=== PATIENT | female | born 1960 | race Hispanic/Latino ===

== ENCOUNTER 2016-08-15 07:59 | Day surgery (SDC) | payer BC ==
[~2016-08-15] VITALS: Ht 139.7 cm; Wt 79.4 kg
[~2016-08-15 07:59] MED LIST: ADVAIR DISK1 IN; ALDACTONE25 MG PO; ALLEGRA180 MG PO; CARVEDILOL3.125 MG PO; CENTRU3 PO; FLONASE AL50 MCG/ACT; JANUMET1 TA1 PO; OMEPRAZOLE20 M2 PO; VITAMIN B-121000 MCG PO; ZYRTEC10 M5 PO
[2016-08-15 10:33] VITALS: BP 106/66
== END 2016-08-15 10:48 | disposition home or self-care (01) | DRG 392 ==
LOC: ENDO 07:59 → ORM 11:00 → ENDO 13:05 → ORM 13:50
PROVIDERS: ATTEND Internal Medicine Gastroenterology
PROC: 0DB48ZX Excision of Esophagogastric Junction, Via Natural or Artificial Opening Endoscopic, Diagnostic (ICD-10-PCS; principal; 2016-08-15)
PROC: 0DBE8ZX Excision of Large Intestine, Via Natural or Artificial Opening Endoscopic, Diagnostic (ICD-10-PCS; 2016-08-15)
DX: R10.11 Right upper quadrant pain (principal); K74.60 Unspecified cirrhosis of liver; K62.5 Hemorrhage of anus and rectum; R10.13 Epigastric pain; K22.70 Barrett's esophagus without dysplasia; R63.4 Abnormal weight loss; K21.9 Gastro-esophageal reflux disease without esophagitis; K29.70 Gastritis, unspecified, without bleeding; K44.9 Diaphragmatic hernia without obstruction or gangrene; K64.4 Residual hemorrhoidal skin tags; K64.8 Other hemorrhoids; E11.9 Type 2 diabetes mellitus without complications; K75.81 Nonalcoholic steatohepatitis (NASH); Z86.010 Personal history of colon polyps

== ENCOUNTER 2017-04-11 22:53 | Observation (INO) | payer BC ==
[~2017-04-11] VITALS: Ht 139.7 cm; Wt 73.0 kg
[2017-04-11 23:47] LABS: HEMATOCRIT 40.4 % (37.0-47.0); HEMOGLOBIN 12.8 g/dl (12.0-16.0); IMMATURE GRANULOCYTES 0.4 % (0.0-1.0); MEAN CELL VOLUME 94.6 fL CALC (80.0-100.0); MEAN CORPUSCULAR HGB CONC 31.7 g/L CALC (32.0-36.0); NEUT# 7.45 thou/uL (2.00-7.15); RED BLOOD COUNT 4.27 mill/uL (4.20-5.60); RED CELL DISTRI WIDTH 16.6 % (11.5-15.5)
[2017-04-12 00:08] LABS: ALBUMIN 4.7 g/dL (3.2-5.0); ALKALINE PHOSPHATASE 108 u/l (38-126); ANION GAP 16 (6-22 (CALC)); BILIRUBIN, TOTAL 0.6 mg/dL (0.0-1.4); BUN 18 mg/dL (7-17); BUN/CREATININE RATIO 23 (12-20 (CALC)); CALCIUM 10.1 mg/dL (8.4-10.2); CARBON DIOXIDE 29 mmol/l (22-30); CHLORIDE 102 mmol/l (95-108); CREATININE 0.8 mg/dL (0.5-1.0); GFR > 60 ML/MIN (>=60 (CALC)); GFR FOR AFR.AMER. > 60 ML/MIN (>=60 (CALC)); GLUCOSE 123 mg/dL (65-105); LIPASE 144 u/l (23-300); POTASSIUM 3.8 mmol/l (3.5-5.1); SGOT/AST 29 u/l (14-36); SGPT/ALT 26 u/l (9-52); SODIUM 143 mmol/l (137-146); TOTAL PROTEIN 8.6 g/dL (6.3-8.2)
[2017-04-12] MEDS ORDERED: ASPIRIN 81 LOW81 MG PO (00:15)
[2017-04-12] MEDS ORDERED: FUROSEMIDE40 MG PO (00:15)
[2017-04-12 00:16] LABS: MYOGLOBIN 37 ng/mL (0 - 62)
[2017-04-12] MEDS ORDERED: SIMVASTATIN40 MG PO (00:16)
[2017-04-12 01:35] VITALS: BP 82/55
[2017-04-12 03:35] VITALS: BP 80/51
[2017-04-12 07:46] VITALS: BP 90/58
[2017-04-12 09:39] VITALS: BP 85/56
== END 2017-04-12 11:25 | disposition home or self-care (01) | DRG 313 ==
LOC: ED 22:53 → ED-I 04-12 00:38 → ED 04-12 00:53 → MS2 04-12 00:54
PROVIDERS: Emergency Medicine; ADMIT Internal Medicine; ATTEND Internal Medicine
PROC: 3E0234Z Introduction of Serum, Toxoid and Vaccine into Muscle, Percutaneous Approach (ICD-10-PCS; principal; 2017-04-12)
DX: R07.9 Chest pain, unspecified (principal); I95.9 Hypotension, unspecified; I25.10 Atherosclerotic heart disease of native coronary artery without angina pectoris; I50.22 Chronic systolic (congestive) heart failure; K74.60 Unspecified cirrhosis of liver; E11.9 Type 2 diabetes mellitus without complications; K21.9 Gastro-esophageal reflux disease without esophagitis; G47.30 Sleep apnea, unspecified; K22.70 Barrett's esophagus without dysplasia; K44.9 Diaphragmatic hernia without obstruction or gangrene; I25.5 Ischemic cardiomyopathy; M19.90 Unspecified osteoarthritis, unspecified site; Z23 Encounter for immunization
CPT/HCPCS: G0378

== ENCOUNTER 2017-09-11 15:10 | Inpatient (IN) | payer BC ==
[2017-09-11] VITALS (21 sets, daily range): BP systolic 74–122; BP diastolic 41–63
[~2017-09-11] VITALS: Ht 139.7 cm; Wt 70.3 kg
[~2017-09-11 15:10] MED LIST changes: +ASPIRIN 81 LOW81 MG PO; +FUROSEMIDE40 MG PO; +SIMVASTATIN40 MG PO
[2017-09-11 16:21] LABS: HEMATOCRIT 36.4 % (37.0-47.0); HEMOGLOBIN 11.4 g/dl (12.0-16.0); IMMATURE GRANULOCYTES 0.3 % (0.0-1.0); MEAN CELL VOLUME 91.9 fL CALC (80.0-100.0); MEAN CORPUSCULAR HGB 28.8 pG CALC (26.0-32.0); MEAN CORPUSCULAR HGB CONC 31.3 g/L CALC (32.0-36.0); NEUT# 7.37 thou/uL (2.00-7.15); RED BLOOD COUNT 3.96 mill/uL (4.20-5.60); RED CELL DISTRI WIDTH 17.2 % (11.5-15.5)
[2017-09-11 16:39] LABS: ALBUMIN 4.4 g/dL (3.2-5.0); ALKALINE PHOSPHATASE 97 u/l (38-126); ANION GAP 19 (6-22 (CALC)); BILIRUBIN, TOTAL 0.8 mg/dL (0.0-1.4); BUN 20 mg/dL (7-17); BUN/CREATININE RATIO 21 (12-20 (CALC)); CARBON DIOXIDE 28 mmol/l (22-30); CHLORIDE 100 mmol/l (95-108); CREATININE 0.9 mg/dL (0.5-1.0); GFR > 60 ML/MIN (>=60 (CALC)); GFR FOR AFR.AMER. > 60 ML/MIN (>=60 (CALC)); POTASSIUM 4.2 mmol/l (3.5-5.1); SGOT/AST 27 u/l (14-36); SGPT/ALT 29 u/l (9-52); SODIUM 142 mmol/l (137-146); TOTAL PROTEIN 8.3 g/dL (6.3-8.2)
[2017-09-11 17:10] LABS: TSH, 3RD GENERATION 1.59 uIU/mL (0.47 - 4.68)
[2017-09-12] VITALS (30 sets, daily range): BP systolic 72–109; BP diastolic 36–59
[2017-09-12 05:09] LABS: ANION GAP 17 (6-22 (CALC)); BUN 15 mg/dL (7-17); BUN/CREATININE RATIO 21 (12-20 (CALC)); CARBON DIOXIDE 31 mmol/l (22-30); CHLORIDE 97 mmol/l (95-108); CREATININE 0.7 mg/dL (0.5-1.0); GFR > 60 ML/MIN (>=60 (CALC)); GFR FOR AFR.AMER. > 60 ML/MIN (>=60 (CALC)); POTASSIUM 4.3 mmol/l (3.5-5.1); SODIUM 141 mmol/l (137-146)
[2017-09-13] VITALS (40 sets, daily range): BP systolic 71–127; BP diastolic 40–77
[2017-09-13 05:51] LABS: ANION GAP 17 (6-22 (CALC)); BUN 12 mg/dL (7-17); BUN/CREATININE RATIO 19 (12-20 (CALC)); CARBON DIOXIDE 30 mmol/l (22-30); CHLORIDE 98 mmol/l (95-108); CREATININE 0.6 mg/dL (0.5-1.0); GFR > 60 ML/MIN (>=60 (CALC)); GFR FOR AFR.AMER. > 60 ML/MIN (>=60 (CALC)); SODIUM 141 mmol/l (137-146)
[2017-09-13 06:07] LABS: HEMATOCRIT 37.1 % (37.0-47.0); HEMOGLOBIN 11.7 g/dl (12.0-16.0); IMMATURE GRANULOCYTES 0.3 % (0.0-1.0); MEAN CELL VOLUME 91.4 fL CALC (80.0-100.0); MEAN CORPUSCULAR HGB 28.8 pG CALC (26.0-32.0); MEAN CORPUSCULAR HGB CONC 31.5 g/L CALC (32.0-36.0); NEUT# 6.41 thou/uL (2.00-7.15); RED BLOOD COUNT 4.06 mill/uL (4.20-5.60); RED CELL DISTRI WIDTH 16.7 % (11.5-15.5)
[2017-09-14] VITALS (26 sets, daily range): BP systolic 84–118; BP diastolic 44–67
[2017-09-15] VITALS (7 sets, daily range): BP systolic 85–98; BP diastolic 46–70
[2017-09-15 05:19] LABS: HEMATOCRIT 38.1 % (37.0-47.0); IMMATURE GRANULOCYTES 0.4 % (0.0-1.0); MEAN CELL VOLUME 90.9 fL CALC (80.0-100.0); MEAN CORPUSCULAR HGB 28.6 pG CALC (26.0-32.0); MEAN CORPUSCULAR HGB CONC 31.5 g/L CALC (32.0-36.0); NEUT# 5.47 thou/uL (2.00-7.15); RED BLOOD COUNT 4.19 mill/uL (4.20-5.60); RED CELL DISTRI WIDTH 16.6 % (11.5-15.5)
[2017-09-15 05:32] LABS: ANION GAP 17 (6-22 (CALC)); BUN 17 mg/dL (7-17); BUN/CREATININE RATIO 26 (12-20 (CALC)); CARBON DIOXIDE 28 mmol/l (22-30); CHLORIDE 98 mmol/l (95-108); CREATININE 0.7 mg/dL (0.5-1.0); GFR > 60 ML/MIN (>=60 (CALC)); GFR FOR AFR.AMER. > 60 ML/MIN (>=60 (CALC)); POTASSIUM 4.3 mmol/l (3.5-5.1); SODIUM 138 mmol/l (137-146)
[2017-09-15] MEDS ORDERED: ALDACTONE25 MG PO (09:05)
== END 2017-09-15 10:57 | DRG 292 ==
LOC: ICU 15:10
PROVIDERS: Internal Medicine; ADMIT Internal Medicine; ATTEND Internal Medicine
DX: I50.23 Acute on chronic systolic (congestive) heart failure (principal); I42.0 Dilated cardiomyopathy; I95.9 Hypotension, unspecified; K76.0 Fatty (change of) liver, not elsewhere classified; E11.9 Type 2 diabetes mellitus without complications; M19.90 Unspecified osteoarthritis, unspecified site; E66.9 Obesity, unspecified; E78.5 Hyperlipidemia, unspecified; G47.33 Obstructive sleep apnea (adult) (pediatric); J45.909 Unspecified asthma, uncomplicated; K22.70 Barrett's esophagus without dysplasia; Z95.810 Presence of automatic (implantable) cardiac defibrillator; Z79.84 Long term (current) use of oral hypoglycemic drugs; Z68.36 Body mass index [BMI] 36.0-36.9, adult
CPT/HCPCS: J1250; J1650

== ENCOUNTER 2017-09-28 00:45 | Emergency (ER) | payer BC ==
[~2017-09-28] VITALS: Ht 139.7 cm; Wt 70.4 kg
[2017-09-28] MEDS ORDERED: CARVEDILOL3.125 MG PO (01:10)
[2017-09-28 01:16] LABS: HEMATOCRIT 37.4 % (37.0-47.0); HEMOGLOBIN 11.8 g/dl (12.0-16.0); IMMATURE GRANULOCYTES 0.4 % (0.0-1.0); MEAN CELL VOLUME 90.3 fL CALC (80.0-100.0); MEAN CORPUSCULAR HGB 28.5 pG CALC (26.0-32.0); MEAN CORPUSCULAR HGB CONC 31.6 g/L CALC (32.0-36.0); NEUT# 8.68 thou/uL (2.00-7.15); RED BLOOD COUNT 4.14 mill/uL (4.20-5.60); RED CELL DISTRI WIDTH 16.4 % (11.5-15.5)
[2017-09-28 01:31] LABS: ALBUMIN 4.4 g/dL (3.2-5.0); ALKALINE PHOSPHATASE 106 u/l (38-126); ANION GAP 17 (6-22 (CALC)); BILIRUBIN, TOTAL 0.6 mg/dL (0.0-1.4); BUN 25 mg/dL (7-17); BUN/CREATININE RATIO 28 (12-20 (CALC)); CARBON DIOXIDE 22 mmol/l (22-30); CHLORIDE 99 mmol/l (95-108); CREATININE 0.9 mg/dL (0.5-1.0); GFR > 60 ML/MIN (>=60 (CALC)); GFR FOR AFR.AMER. > 60 ML/MIN (>=60 (CALC)); POTASSIUM 4.7 mmol/l (3.5-5.1); SGOT/AST 38 u/l (14-36); SGPT/ALT 34 u/l (9-52); SODIUM 134 mmol/l (137-146)
[2017-09-28 01:43] LABS: MYOGLOBIN 26 ng/mL (0 - 62)
[2017-09-28 02:00] LABS: URINE BILIRUBIN - DIPSTICK NEGATIVE (NEGATIVE); URINE BLOOD DIPSTICK NEGATIVE (NEGATIVE); URINE COLOR YELLOW; URINE GLUCOSE - DIPSTICK NEGATIVE (NEGATIVE); URINE KETONE NEGATIVE (NEGATIVE); URINE LEUK ESTERASE NEGATIVE (NEGATIVE); URINE NITRITE - DIPSTICK NEGATIVE (Negative); URINE PROTEIN - DIPSTICK NEGATIVE (NEG-TRACE); URINE SPECIFIC GRAVITY <=1.005; URINE UROBILINOGEN - DIPSTICK 0.2 E.U./dL (0.2)
[2017-09-28 02:03] LABS: URINE CLARITY SL CLOUDY
[2017-09-28 02:55] VITALS: BP 117/69
== END 2017-09-28 02:55 | disposition short-term general hospital (02) | DRG 282 ==
LOC: ED 00:45
PROVIDERS: Family Medicine
DX: I21.4 Non-ST elevation (NSTEMI) myocardial infarction (principal); I50.9 Heart failure, unspecified; Z95.810 Presence of automatic (implantable) cardiac defibrillator; R06.02 Shortness of breath

== ENCOUNTER 2018-09-24 06:51 | Day surgery (SDC) | payer BC ==
[~2018-09-24] VITALS: Ht 139.7 cm; Wt 77.1 kg
[~2018-09-24 06:51] MED LIST changes: +ALL DAY10 MG PO; +CARVEDILOL6.25 MG PO; +ENTRESTO 24-261 TAB PO; +FAMOTIDINE20 M1 PO; +LASIX 80 MG TAB80 M1 PO; +SPIRONOLACTONE25 MG PO
[2018-09-24 09:02] VITALS: BP 80/42
== END 2018-09-24 09:08 | disposition home or self-care (01) | DRG 392 ==
LOC: ORM 06:51
PROVIDERS: ATTEND Internal Medicine Gastroenterology
PROC: 0DB48ZX Excision of Esophagogastric Junction, Via Natural or Artificial Opening Endoscopic, Diagnostic (ICD-10-PCS; principal; 2018-09-24)
PROC: 0DB78ZX Excision of Stomach, Pylorus, Via Natural or Artificial Opening Endoscopic, Diagnostic (ICD-10-PCS; 2018-09-24)
DX: K21.0 Gastro-esophageal reflux disease with esophagitis (principal); K29.00 Acute gastritis without bleeding; K29.50 Unspecified chronic gastritis without bleeding; K31.7 Polyp of stomach and duodenum; K44.9 Diaphragmatic hernia without obstruction or gangrene; K75.81 Nonalcoholic steatohepatitis (NASH); E11.9 Type 2 diabetes mellitus without complications

== ENCOUNTER 2019-03-25 06:41 | Day surgery (SDC) | payer BC ==
[~2019-03-25] VITALS: Ht 137.2 cm; Wt 77.1 kg
[~2019-03-25 06:41] MED LIST changes: +LASIX 40 MG TAB40 MG PO; +OMEPRAZOLE DR10 MG PO; +OMEPRAZOLE DR40 MG PO
[2019-03-25 08:43] VITALS: BP 102/63
== END 2019-03-25 09:04 | disposition home or self-care (01) | DRG 395 ==
LOC: ENDO 06:41 → ORM 14:15
PROVIDERS: ATTEND Internal Medicine Gastroenterology
PROC: 0DJD8ZZ Inspection of Lower Intestinal Tract, Via Natural or Artificial Opening Endoscopic (ICD-10-PCS; principal; 2019-03-25)
DX: K64.4 Residual hemorrhoidal skin tags (principal); D64.9 Anemia, unspecified; K59.00 Constipation, unspecified; E11.9 Type 2 diabetes mellitus without complications; Z86.010 Personal history of colon polyps

== ENCOUNTER 2021-07-29 13:42 | Emergency (ER) | payer BC ==
[2021-07-29] VITALS (8 sets, daily range): BP systolic 95–115; BP diastolic 40–64
[~2021-07-29] VITALS: Ht 139.7 cm; Wt 81.8 kg
[2021-07-29] MEDS ORDERED: ALLERGY RELF10 M3 PO (14:15)
[2021-07-29] MEDS ORDERED: SPIRONOLACTONE25 MG PO (14:16)
[2021-07-29 14:26] LABS: HEMATOCRIT 36.9 % (37.0-47.0); HEMOGLOBIN 11.3 g/dl (12.0-16.0); IMMATURE GRANULOCYTES 0.2 % (0.0-5.0); MEAN CELL VOLUME 93.2 fL CALC (80.0-100.0); MEAN CORPUSCULAR HGB 28.5 pG CALC (26.0-32.0); MEAN CORPUSCULAR HGB CONC 30.6 g/dL CAL (32.0-36.0); NEUT# 5.97 thou/uL (2.00-7.15); RED BLOOD COUNT 3.96 mill/uL (4.20-5.60); RED CELL DISTRI WIDTH 15.7 % (11.5-15.5)
[2021-07-29 14:44] LABS: ALBUMIN 4.4 g/dL (3.2-5.0); ALKALINE PHOSPHATASE 100 u/l (38-126); BILIRUBIN, TOTAL 0.4 mg/dL (0.0-1.4); BUN 27 mg/dL (8-23); BUN/CREATININE RATIO 27 (12-20 (CALC)); CHLORIDE 101 mmol/l (95-108); GFR 56 ML/MIN (>=60 (CALC)); GFR FOR AFR.AMER. > 60 ML/MIN (>=60 (CALC)); POTASSIUM 4.3 mmol/l (3.5-5.1); SGOT/AST 25 u/l (9-36); SODIUM 138 mmol/l (137-146); TOTAL PROTEIN 8.8 g/dL (6.3-8.2)
[2021-07-29 14:46] LABS: ANION GAP 12 (6-22 (CALC)); CARBON DIOXIDE 29 mmol/l (22-30)
[2021-07-29 14:56] LABS: MYOGLOBIN 30 ng/mL (0 - 62)
== END 2021-07-29 16:38 | disposition left against medical advice (07) | DRG 313 ==
LOC: ED 13:42
PROVIDERS: Emergency Medicine
DX: R07.9 Chest pain, unspecified (principal); I50.9 Heart failure, unspecified; I25.10 Atherosclerotic heart disease of native coronary artery without angina pectoris; I42.9 Cardiomyopathy, unspecified; E11.9 Type 2 diabetes mellitus without complications; K74.60 Unspecified cirrhosis of liver; G47.30 Sleep apnea, unspecified; Z91.19 Patient's noncompliance with other medical treatment and regimen; Z95.810 Presence of automatic (implantable) cardiac defibrillator

== ENCOUNTER 2024-01-09 17:18 | Emergency (ER) | payer BC ==
[~2024-01-09] VITALS: Ht 139.7 cm; Wt 57.0 kg
[2024-01-09] VITALS (24 sets, daily range): BP systolic 67–139; BP diastolic 36–88
[~2024-01-09 17:18] MED LIST changes: +ALLERGY RELF10 M3 PO; +DIGOX125 MCG PO; +FARXIGA10 MG PO; +LASIX40 MG PO; +LEVOCETIRIZINE D5 MG PO; +WEGOVY0.25 MG SC
[2024-01-09 17:54] LABS: BASO% 0.5 % (0-3); EOS% 3.4 % (0-8); HEMATOCRIT 34.1 % (37.0-47.0); HEMOGLOBIN 10.5 g/dl (12.0-16.0); IMMATURE GRANULOCYTES 0.1 % (0.0-5.0); LYMPH% 20.8 % (15-41); MEAN CELL VOLUME 92.9 fL CALC (80.0-100.0); MEAN CORPUSCULAR HGB 28.6 pG CALC (26.0-32.0); MEAN CORPUSCULAR HGB CONC 30.8 g/dL CAL (32.0-36.0); MONO% 6.4 % (2-13); NEUT# 6.84 thou/uL (2.00-7.15); NEUT% 68.8 % (42-76); RED BLOOD COUNT 3.67 mill/uL (4.20-5.60); RED CELL DISTRI WIDTH 16.3 % (11.5-15.5)
[2024-01-09 18:06] LABS: ALBUMIN 4.6 g/dL (3.2-5.0); BILIRUBIN, TOTAL 0.7 mg/dL (0.02-1.3); CREATININE 1.3 mg/dL (0.5-1.0); POTASSIUM 4.6 mmol/l (3.5-5.1)
[2024-01-09 18:10] LABS: TOTAL PROTEIN 8.6 g/dL (6.3-8.2)
[2024-01-09] MEDS ORDERED: BUMETANIDE 1 MG/4 ML VIAL IV ONE (19:15)
[2024-01-09] MEDS ORDERED: NITROGLYCERIN 2% OINT UD 1 GM/PAK TD ONE (19:15)
[2024-01-09] MEDS ORDERED: ONDANSETRON HCl 4 MG/2 ML SDV IV ONE (19:15)
[2024-01-09] MEDS ORDERED: LOPRESSOR25 M1 PO (19:38)
[2024-01-09 20:56] LABS: URINE BILIRUBIN - DIPSTICK Negative (NEGATIVE); URINE BLOOD DIPSTICK Negative (NEGATIVE); URINE GLUCOSE - DIPSTICK 250 mg/dL (NEGATIVE); URINE KETONE Negative (NEGATIVE); URINE LEUK ESTERASE Negative (NEGATIVE); URINE NITRITE - DIPSTICK Negative (Negative); URINE PROTEIN - DIPSTICK Negative (NEG-TRACE); URINE SPECIFIC GRAVITY <=1.005; URINE UROBILINOGEN - DIPSTICK 0.2 E.U./dL (0.2)
[2024-01-09 20:57] LABS: URINE COLOR Yellow
== END 2024-01-09 22:05 | disposition short-term general hospital (02) | DRG 313 ==
LOC: ED 17:18
PROVIDERS: Family Medicine
PROC: 5A09357 Assistance with Respiratory Ventilation, Less than 24 Consecutive Hours, Continuous Positive Airway Pressure (ICD-10-PCS; principal; 2024-01-09)
DX: R07.9 Chest pain, unspecified (principal); J96.90 Respiratory failure, unspecified, unspecified whether with hypoxia or hypercapnia; I11.0 Hypertensive heart disease with heart failure; I50.9 Heart failure, unspecified; E11.9 Type 2 diabetes mellitus without complications; E78.5 Hyperlipidemia, unspecified; K76.0 Fatty (change of) liver, not elsewhere classified; G47.30 Sleep apnea, unspecified; Z79.84 Long term (current) use of oral hypoglycemic drugs; Z95.810 Presence of automatic (implantable) cardiac defibrillator; Z20.822 Contact with and (suspected) exposure to COVID-19
CPT/HCPCS: Q9967

== ENCOUNTER 2024-06-06 09:49 | Emergency (ER) | payer BC ==
[2024-06-06] VITALS (60 sets, daily range): BP systolic 82–115; BP diastolic 34–59
[~2024-06-06] VITALS: Ht 139.7 cm; Wt 62.4 kg
[~2024-06-06 09:49] MED LIST changes: +ATELVIA35 MG PO; +IVABRADINE PO; +LANOXIN0.125 MG PO; +LOPRESSOR25 M1 PO; +VITAMIN D PO; +[UNRECOGNIZED DRUG - OTHER] PO; +[UNRECOGNIZED DRUG - OTHER] PO
--- NOTE | 2024-06-06 09:50 | NUR ---
PT TO ER ROOM 3 WITH STEADY GAIT
[2024-06-06 10:20] LABS: BASO% 0.5 % (0-3); EOS% 2.7 % (0-8); HEMATOCRIT 35.2 % (37.0-47.0); HEMOGLOBIN 10.8 g/dl (12.0-16.0); IMMATURE GRANULOCYTES 0.3 % (0.0-5.0); LYMPH% 20.1 % (15-41); MEAN CELL VOLUME 100.3 fL CALC (80.0-100.0); MEAN CORPUSCULAR HGB 30.8 pG CALC (26.0-32.0); MEAN CORPUSCULAR HGB CONC 30.7 g/dL CAL (32.0-36.0); MONO% 5.7 % (2-13); NEUT# 6.49 thou/uL (2.00-7.15); NEUT% 70.7 % (42-76); RED BLOOD COUNT 3.51 mill/uL (4.20-5.60); RED CELL DISTRI WIDTH 15.4 % (11.5-15.5)
[2024-06-06 10:55] LABS: ALBUMIN 4.5 g/dL (3.2-5.0); BILIRUBIN, TOTAL 0.9 mg/dL (0.02-1.3); CREATININE 1.3 mg/dL (0.5-1.0); POTASSIUM 4.1 mmol/l (3.5-5.1); TOTAL PROTEIN 8.2 g/dL (6.3-8.2)
--- NOTE | 2024-06-06 11:30 | NUR ---
PT TO R BATHROOM WITH STEADY GAIT. NO DISTRESS NOTED.
[2024-06-06] MEDS ORDERED: FUROSEMIDE 40 MG/4 ML SDV IV ONE (12:00)
[2024-06-06] MEDS ORDERED: MIDODRINE5 MG PO (12:12)
[2024-06-06] MEDS ORDERED: SILDENAFIL20 MG (12:14)
[2024-06-06] MEDS ORDERED: OZEMPIC2 MG SC (12:15)
[2024-06-06] MEDS ORDERED: ACETAMINOPHEN 325 MG/TAB PO PRN (12:15)
[2024-06-06] MEDS ORDERED: MAGNESIUM HYDROXIDE 30 ML UDC PO PRN (12:15)
--- NOTE | 2024-06-06 12:31 | NUR ---
PT GIVEN LASIX PER EMAR. PT REQUEST BEDSIDE COMMODE. COMMODE AND WIPES PROVIDED TO PT. CALL LIGHT IN REAC. PT DENIES ANY NEEDS.
--- NOTE | 2024-06-06 13:45 | NUR ---
PTS COMMODE EMPTIED. 500ML URINE OUTPUT COLLECTED.
[2024-06-06] MEDS ORDERED: FUROSEMIDE 40 MG/4 ML SDV IV SCH (14:00)
[2024-06-06] MEDS ORDERED: Heparin SODIUM (Porcine) 5,000 UNITS/ML SDV SC SCH (14:00)
--- NOTE | 2024-06-06 14:30 | NUR ---
PTS LUNCH TRAY PROVIDED. PT DENIES ANY CURRENT NEEDS.
--- NOTE | 2024-06-06 14:37 | NUR ---
BEDSIDE REPORTT GIVEN TO KASSI POWER
--- NOTE | 2024-06-06 16:25 | NUR ---
PT TAKEN TO ICU. VIA BED.
--- NOTE | 2024-06-06 16:26 | NUR ---
500ML URINE EMPTIED FROM COMMODE.
--- NOTE | 2024-06-06 16:33 | NUR ---
PATIENT ADMITTED FORM ED TO ICU3. PATIENT A&OX4 AND ABLE TO MAKE NEEDS KNOWN. PATIENT ORIENTED TO ROOM, CALL LIGHT, AND SURROUNDINGS, PATIENT VERBALIZED UNDERSTANDING. ADMISSION AND ASSESSMENT COMPLETED WITH PATIENT. PATIENT DENIES ANY NEEDS AT THIS TIME. PATIENT BED AT LOWEST LEVEL, TOP 2 SIDERAILS UP, AND CALL LIGHT WITHIN REACH.
[2024-06-06] MEDS ORDERED: INSULIN LISPRO 100 UNITS/ML ML SC SCH (17:00)
[2024-06-06] MEDS ORDERED: MIDODRINE HCL 5 MG TAB PO SCH ×2 (17:30)
--- NOTE | 2024-06-06 19:00 | NUR ---
REPORT RECEIVED FROM JANNET GOLDMAN AND CARE OF PT ASSUMED AT THIS TIME
--- NOTE | 2024-06-06 21:00 | NUR ---
PT AMBULATED TO BR AND BACK TO BED W/ STEADY GAIT AND W/O DIFFICULTY. A&O X 4. NO DISTRESS NOTED
[2024-06-07] VITALS (59 sets, daily range): BP systolic 72–121; BP diastolic 34–75
--- NOTE | 2024-06-07 | NUR ---
PT SLEEPING. NO DISTRESS NOTED
[2024-06-07 04:53] LABS: ALBUMIN 3.8 g/dL (3.2-5.0); BILIRUBIN, TOTAL 0.7 mg/dL (0.02-1.3); CREATININE 1.6 mg/dL (0.5-1.0)
[2024-06-07 04:55] LABS: MAGNESIUM 1.9 mg/dL (1.6-2.3)
[2024-06-07 05:05] LABS: BASO% 0.5 % (0-3); EOS% 3.8 % (0-8); HEMATOCRIT 34.5 % (37.0-47.0); HEMOGLOBIN 10.8 g/dl (12.0-16.0); IMMATURE GRANULOCYTES 0.1 % (0.0-5.0); LYMPH% 22.5 % (15-41); MEAN CELL VOLUME 100.3 fL CALC (80.0-100.0); MEAN CORPUSCULAR HGB 31.4 pG CALC (26.0-32.0); MEAN CORPUSCULAR HGB CONC 31.3 g/dL CAL (32.0-36.0); MONO% 6.6 % (2-13); NEUT# 5.41 thou/uL (2.00-7.15); NEUT% 66.5 % (42-76); RED BLOOD COUNT 3.44 mill/uL (4.20-5.60); RED CELL DISTRI WIDTH 15.1 % (11.5-15.5)
--- NOTE | 2024-06-07 06:00 | NUR ---
PT SLEEPING, EASILY AROUSABLE. MEDICATED PER MD ORDERS. AMBULATED TO BR AND BACK TO BED. NO DISTRESS NOTED
--- NOTE | 2024-06-07 08:00 | NUR ---
PT IS SITTING IN CHAIR BY THE BED, EATING BREAKFAST. CALL LIGHT IN REACH.
[2024-06-07] MEDS ORDERED: SPIRONOLACTONE 25 MG/TAB PO SCH (09:00)
[2024-06-07] MEDS ORDERED: DIGOXIN 0.25 MG/TAB PO SCH (09:00)
[2024-06-07] MEDS ORDERED: PANTOPRAZOLE SODIUM Sesquihydr 40 MG/TAB PO SCH (09:00)
[2024-06-07] MEDS ORDERED: DIGOXIN 0.125 MG/TAB PO SCH (09:00)
[2024-06-07] MEDS ORDERED: ASPIRIN 81 MG/TAB PO SCH (09:00)
--- NOTE | 2024-06-07 12:01 | NUR ---
PT IS SITTIN KRIS CHAIR BY THE BED. CALL LIGHT IN REACH AND FRIEND AT THE BEDSIDE
--- NOTE | 2024-06-07 12:15 | NUR ---
BLADDER SCAN SHOWS 417. DR. ZHU ON THE UNIT, NOTIFIED AT TIME OF SCAN.
--- NOTE | 2024-06-07 16:03 | NUR ---
Discharge instructions given. Patient verbalizes understanding of same. Discharged in stable condition via Wheelchair to Home with staff. All belongings sent with pt. IV and Telemetry removed.
== END 2024-06-07 15:50 | disposition home or self-care (01) | DRG 291 ==
LOC: ED 09:49 → ED-I 11:49 → ED 12:05 → ICU 12:06
PROVIDERS: Family Medicine; Nurse Practitioner Family; ADMIT Internal Medicine; ATTEND Internal Medicine
DX: I11.0 Hypertensive heart disease with heart failure (principal); I50.23 Acute on chronic systolic (congestive) heart failure; I25.10 Atherosclerotic heart disease of native coronary artery without angina pectoris; I95.9 Hypotension, unspecified; I42.0 Dilated cardiomyopathy; I34.0 Nonrheumatic mitral (valve) insufficiency; K76.0 Fatty (change of) liver, not elsewhere classified; K22.70 Barrett's esophagus without dysplasia; K44.9 Diaphragmatic hernia without obstruction or gangrene; G47.33 Obstructive sleep apnea (adult) (pediatric); E66.9 Obesity, unspecified; Z95.810 Presence of automatic (implantable) cardiac defibrillator; Z79.899 Other long term (current) drug therapy
CPT/HCPCS: J1644; J1815; J1940

== ENCOUNTER 2024-07-13 08:01 | Inpatient (IN) | payer BC ==
[~2024-07-13] VITALS: Ht 139.7 cm; Wt 62.0 kg
[2024-07-13] VITALS (29 sets, daily range): BP systolic 64–107; BP diastolic 39–67
[~2024-07-13 08:01] MED LIST changes: +MIDODRINE5 MG PO; +OZEMPIC2 MG SC; +SILDENAFIL20 MG
--- NOTE | 2024-07-13 08:10 | NUR ---
TO ROOM VIA WHEELCHAIR
[2024-07-13] MEDS ORDERED: FUROSEMIDE 40 MG/4 ML SDV IV ONE (08:30)
[2024-07-13 09:09] LABS: BASO% 0.3 % (0-3); HEMATOCRIT 30.7 % (37.0-47.0); HEMOGLOBIN 9.7 g/dl (12.0-16.0); IMMATURE GRANULOCYTES 0.2 % (0.0-5.0); LYMPH% 17.1 % (15-41); MEAN CELL VOLUME 96.8 fL CALC (80.0-100.0); MEAN CORPUSCULAR HGB 30.6 pG CALC (26.0-32.0); MEAN CORPUSCULAR HGB CONC 31.6 g/dL CAL (32.0-36.0); MONO% 3.8 % (2-13); NEUT# 7.22 thou/uL (2.00-7.15); NEUT% 76.6 % (42-76); RED BLOOD COUNT 3.17 mill/uL (4.20-5.60); RED CELL DISTRI WIDTH 15.4 % (11.5-15.5)
[2024-07-13 09:30] LABS: ALBUMIN 4.5 g/dL (3.2-5.0); BILIRUBIN, TOTAL 0.8 mg/dL (0.02-1.3); CREATININE 1.4 mg/dL (0.5-1.0); POTASSIUM 3.7 mmol/l (3.5-5.1); TOTAL PROTEIN 7.8 g/dL (6.3-8.2)
--- NOTE | 2024-07-13 10:03 | NUR ---
PT UP TO BED SIDE COMMOD,200CC URINE OUT PUT
--- NOTE | 2024-07-13 10:19 | NUR ---
PT ASSISTED TO THE BEDSIDE COMMAND, 400CC OUTPUT
--- NOTE | 2024-07-13 11:40 | NUR ---
Reassessment of patient completed. No distress noted. WARM BLANKET OFFERED AND REFUSED. VISITORS AT BEDSIDE.
--- NOTE | 2024-07-13 12:00 | NUR ---
PT UP TO BEDSIDE COMM0D,URINE OUT PUT 300
--- NOTE | 2024-07-13 12:55 | NUR ---
PT RESTING COMFORTABLY IN BED WITH FAMILY AT BEDSIDE
[2024-07-13] MEDS ORDERED: ACETAMINOPHEN 325 MG/TAB PO PRN (13:05)
[2024-07-13] MEDS ORDERED: MAGNESIUM HYDROXIDE 30 ML UDC PO PRN (13:05)
--- NOTE | 2024-07-13 13:10 | NUR ---
PT UP TO BED SIDE COMMOD, URINE OUTPUT 200
--- NOTE | 2024-07-13 13:26 | NUR ---
REPORT CALLED TO CIRA UGARTE
--- NOTE | 2024-07-13 13:35 | NUR ---
PT ARRIVED TO THE UNIT FROM ED VIA WC WITH 2L O2 NC IN PLACE. NURSE PATRICIA WAS A STANDBY ASSIST WHILE PT AMBULATED TO SCALE AND BED WITH A STEADY GATE. O2 ON 2L IN ROOM. RESP EVEN AND UNLABORED. LUNGS CLEAR IN ALL NGUYỄN. PACED SR, TELLE IN PLACE. PT STATES HAVING ABD FULLNESS, NOT TENDER ON PALPATION, ACTIVE BOWEL SOUNDS IN ALL 4. 18G IN RAC. STRONG RADIAL PULSES AND WEAK PEDAL PULSES. PT ORIENTED TO ROOM AND CALL SOL. SAFTEY PRECAUTIONS IN PLACE. BED IN THE LOWEST POSITION AND CALL SOL WITHIN REACH.
--- NOTE | 2024-07-13 13:41 | NUR ---
TO ROOM 274 VIA WHEELCHAIR, TELE MONITOR #[id number], ALL PERSONAL BELONGINGS WITH PT
[2024-07-13] MEDS ORDERED: Heparin SODIUM (Porcine) 5,000 UNITS/ML SDV SC SCH (14:00)
[2024-07-13] MEDS ORDERED: MIDODRINE HCL 5 MG TAB PO SCH ×2 (15:00→21:00)
--- NOTE | 2024-07-13 15:54 | NUR ---
PT IS SITTING IN HIGH FOWLEWRS POSITION WITH VISITORS AT BEDSIDE. NO S/S OF DISTRESS AT THIS TIME. TELLE IN PLACE. O2 NC IN PLACE. SAFTEY PRECAUTIONS IN PLACE. BED IN THE LOWEST POSITION AND CALL LIGHT WITHIN REACH.
[2024-07-13] MEDS ORDERED: FUROSEMIDE 40 MG/4 ML SDV IV SCH (16:00)
--- NOTE | 2024-07-13 16:49 | NUR ---
PT BASELINE IS HX OF HYPOTENTION. PTS BP DROPPED DOWN TO 80S OVER 40S. NOTIFIED MARIELA FISH DRIER, MARIELA CHANGED NEXT ORDERED DOSE OF MIDOGRINE TO A HIGHER DOSE. WILL CONTINUE TO MONITOR BP CLOSELY.
[2024-07-13] MEDS ORDERED: INSULIN LISPRO 100 UNITS/ML ML SC SCH (17:00)
--- NOTE | 2024-07-13 19:30 | NUR ---
RECD REPORT FROM DAY SHIFT RN. NO DISTRESS NOTED. DENIES COMPLAINTS. EDUCATED PARACHUTE OFFICER LIGHT AND FALL PRECAUTIONS. DEMONSTRATED UNDERSTANDING
[2024-07-14] VITALS: BP 103/51; BP 107/57
--- NOTE | 2024-07-14 | NUR ---
PT OBSERVED SLEEPING WITHOUT DISTRESS, DENIES COMPLAINTS VSS WITH CALL LIGHT WITHIN REACH
[2024-07-14 04:00] VITALS: BP 101/68
[2024-07-14 05:20] LABS: BASO% 0.6 % (0-3); EOS% 2.8 % (0-8); HEMATOCRIT 30.3 % (37.0-47.0); HEMOGLOBIN 9.6 g/dl (12.0-16.0); IMMATURE GRANULOCYTES 0.2 % (0.0-5.0); LYMPH% 22.4 % (15-41); MEAN CELL VOLUME 95.6 fL CALC (80.0-100.0); MEAN CORPUSCULAR HGB 30.3 pG CALC (26.0-32.0); MEAN CORPUSCULAR HGB CONC 31.7 g/dL CAL (32.0-36.0); MONO% 4.8 % (2-13); NEUT# 5.88 thou/uL (2.00-7.15); NEUT% 69.2 % (42-76); RED BLOOD COUNT 3.17 mill/uL (4.20-5.60); RED CELL DISTRI WIDTH 15.4 % (11.5-15.5)
[2024-07-14 05:44] LABS: BILIRUBIN, TOTAL 1.1 mg/dL (0.02-1.3); CREATININE 1.2 mg/dL (0.5-1.0); POTASSIUM 3.8 mmol/l (3.5-5.1); TOTAL PROTEIN 7.1 g/dL (6.3-8.2)
[2024-07-14 05:48] LABS: MAGNESIUM 1.4 mg/dL (1.6-2.3)
--- NOTE | 2024-07-14 06:48 | NUR ---
PT REMAINS STABLE WITH NO SIGNS OF DISTRESS RESTING WELL WITH CALL LIGHT WITHIN REACH
--- NOTE | 2024-07-14 07:30 | NUR ---
PT SITTING ON THE SIDE OF THE BED VISITING WITH VISITOR AT BEDSIDE, PT IS A&O X3, PUPILS PERRL, RESP. EVEN AND UNLABORED, LUNG SOUNDS ARE CLEAR, ABD DISTENDED AND SOFT WITH ACTIVE BOWEL SOUNDS, 18 RAC IV SL, DRESSING CD&I. STRONG RADIAL PULSES, WEAK PEDAL PULSES, SAFETY MEASURES REINFORCED, CALL SOL WITHIN REACH
[2024-07-14 07:31] VITALS: BP 100/47
[2024-07-14] MEDS ORDERED: ASPIRIN 81 MG/TAB PO SCH (09:00)
[2024-07-14] MEDS ORDERED: PANTOPRAZOLE SODIUM Sesquihydr 40 MG/TAB PO SCH (09:00)
[2024-07-14] MEDS ORDERED: DIGOXIN 0.125 MG/TAB PO SCH (09:00)
[2024-07-14] MEDS ORDERED: SPIRONOLACTONE 25 MG/TAB PO SCH (12:00)
[2024-07-14] MEDS ORDERED: MAGNESIUM SULFATE HEPTAHYDRATE 100 ML IV SCH (13:00)
[2024-07-14 14:49] VITALS: BP 112/54
--- NOTE | 2024-07-14 16:00 | NUR ---
PT SITTING UP IN THE RECLINER TALKING TO VISITORS, NO S/S OF DISTRESS, CALL SOL WITHIN REACH
--- NOTE | 2024-07-14 19:00 | NUR ---
RECD REPORT FROM DAY SHIFT RN. PT IS STABLE AT THIS TIME WITH VISITORS BEDSIDE CALL LIGHT WITHIN REACH
[2024-07-14 20:00] VITALS: BP 115/72
[2024-07-14] MEDS ORDERED: IPRATROPIUM-Albuterol 0.5MG-2.5MG/3 ML NEB PRN (20:05)
[2024-07-14] MEDS ORDERED: IPRATROPIUM-Albuterol 0.5MG-2.5MG/3 ML IN PRN (20:25)
[2024-07-15] VITALS: BP 112/54
--- NOTE | 2024-07-15 | NUR ---
PT HAD INTERMITTENT EPISODE OF SELF INDUCED ANXIETY AND RESPONDED TO VISITORS SUGGESTIONS, BELIEVING THE MANIFESTING SYMPTOMS THAT WERE NOT EVIDENT. CALLED MARIELA, ORDERED NEB ADMINISTERED AND REMAINED STABLE WITH REDUCED ANXIETY. CALL LIGHT IN REACH
[2024-07-15 04:00] VITALS: BP 112/66
[2024-07-15 06:38] LABS: BASO% 0.2 % (0-3); EOS% 0.5 % (0-8); HEMATOCRIT 30.3 % (37.0-47.0); HEMOGLOBIN 9.6 g/dl (12.0-16.0); IMMATURE GRANULOCYTES 0.1 % (0.0-5.0); LYMPH% 14.9 % (15-41); MEAN CELL VOLUME 96.5 fL CALC (80.0-100.0); MEAN CORPUSCULAR HGB 30.6 pG CALC (26.0-32.0); MEAN CORPUSCULAR HGB CONC 31.7 g/dL CAL (32.0-36.0); MONO% 4.6 % (2-13); NEUT# 7.74 thou/uL (2.00-7.15); NEUT% 79.7 % (42-76); RED BLOOD COUNT 3.14 mill/uL (4.20-5.60); RED CELL DISTRI WIDTH 15.3 % (11.5-15.5)
--- NOTE | 2024-07-15 06:50 | NUR ---
PT REMAINED STABLE THTOUGHOUT SHIFT. NO COMPLAINTS OR SIGNS OF DISTRESS DENIES SOB OR PAIN RESTIN WELL WITH CALL LIGHT IN REACH
[2024-07-15 06:53] LABS: ALBUMIN 4.1 g/dL (3.2-5.0); BILIRUBIN, TOTAL 1.3 mg/dL (0.02-1.3); CREATININE 1.4 mg/dL (0.5-1.0); MAGNESIUM 2.7 mg/dL (1.6-2.3); POTASSIUM 3.8 mmol/l (3.5-5.1); TOTAL PROTEIN 7.2 g/dL (6.3-8.2)
[2024-07-15 07:29] VITALS: BP 105/62
--- NOTE | 2024-07-15 07:30 | NUR ---
PATIENT SITTING UP ON SIDE OF BED AWAKE ON CELLPHONE. FAMILY MEMBER AT BEDSIDE. BREATHING UNLABORED ON 2L NC. TELE INTACT. IV IN RAC SL;SITE CLEAN AND INTACT. PT DENIES ANY PAIN OR N/D/V AT THIS TIME. ASSESSMENT COMPLETED. PERSONAL ITEMS WELL CALL LIGHT NEAR. BED IN LOWEST POSITION. NO NEEDS AT THIS TIME. POC ONGOING.
[2024-07-15 10:52] VITALS: BP 101/59
--- NOTE | 2024-07-15 11:06 | NUR ---
Discharge instructions given. Patient verbalizes understanding of same. Discharged in stable condition via Wheelchair to Home with friend. All belongings sent with pt. Tele #[phone] removed and placed in bin at nursing station.
== END 2024-07-15 11:06 | disposition home or self-care (01) | DRG 292 ==
LOC: ED 08:01 → ED-I 10:00 → ED 10:47 → MS2 10:48
PROVIDERS: Family Medicine; Nurse Practitioner Family; ADMIT Internal Medicine; ATTEND Internal Medicine
DX: I50.23 Acute on chronic systolic (congestive) heart failure (principal); I42.0 Dilated cardiomyopathy; I25.5 Ischemic cardiomyopathy; E11.22 Type 2 diabetes mellitus with diabetic chronic kidney disease; N18.31 Chronic kidney disease, stage 3a; D63.1 Anemia in chronic kidney disease; I34.0 Nonrheumatic mitral (valve) insufficiency; J44.9 Chronic obstructive pulmonary disease, unspecified; E78.5 Hyperlipidemia, unspecified; K22.70 Barrett's esophagus without dysplasia; E83.42 Hypomagnesemia; E66.9 Obesity, unspecified; G47.30 Sleep apnea, unspecified; K76.0 Fatty (change of) liver, not elsewhere classified; Z95.810 Presence of automatic (implantable) cardiac defibrillator; Z79.84 Long term (current) use of oral hypoglycemic drugs; R60.9 Edema, unspecified; R06.02 Shortness of breath
CPT/HCPCS: J1644; J1815; J1939; J1940; J3475